=== PATIENT | male | born 1975 | race Hispanic/Latino ===

== ENCOUNTER → 2021-08-15 | Outpatient (CLI) | payer BC | END | disposition home or self-care (01) | LOC: SHCH 14:51 | PROVIDERS: ATTEND Student in an Organized Health Care Education/Training Program | DX: I35.1 Nonrheumatic aortic (valve) insufficiency (principal); I35.0 Nonrheumatic aortic (valve) stenosis; I10 Essential (primary) hypertension; E78.5 Hyperlipidemia, unspecified; Z95.2 Presence of prosthetic heart valve | CPT/HCPCS: 93306 ==

== ENCOUNTER → 2022-10-08 | Outpatient (CLI) | payer BC | END | disposition home or self-care (01) | LOC: SHCH 15:08 | PROVIDERS: ATTEND Student in an Organized Health Care Education/Training Program | DX: Z95.3 Presence of xenogenic heart valve (principal) | CPT/HCPCS: 93306 ==

== ENCOUNTER → 2024-03-17 | Outpatient (CLI) | payer BC | END | disposition home or self-care (01) | LOC: SHCH 13:12 | PROVIDERS: ATTEND Student in an Organized Health Care Education/Training Program | DX: I35.1 Nonrheumatic aortic (valve) insufficiency (principal) | CPT/HCPCS: 93306 ==